=== PATIENT | male | born 1950 | race American Indian/Alaskan Native ===

== ENCOUNTER 2022-02-25 13:57 | Emergency (ER) | payer MEDICARE ==
[2022-02-25] MEDS ORDERED: IPRATROPIUM 0.02% NEBU 2.5 ML IH ONE (15:13)
[2022-02-25] MEDS ORDERED: ALBUTEROL 2.5 MG/3 ML NEBU IH ONE (15:13)
--- NOTE | 2022-02-25 15:58 | XRay Report ---
CHEST 1 VIEW 02/25/2022 3:17 PM INDICATION / CLINICAL INFORMATION: Dyspnea. COMPARISON: None available. FINDINGS: SUPPORT DEVICES: None. HEART / MEDIASTINUM: No significant abnormality. LUNGS / PLEURA: Streaky bibasilar densities which may represent parenchymal scarring. No airspace con solidation. No pneumothorax. ADDITIONAL FINDINGS: Multiple, healed, bilateral rib fractures. IMPRESSION: 1. Streaky bibasilar densities which could represent parenchymal scarring. Signer Name: Diana Jeffries MD Signed: 02/25/2022 3:53 PM Workstation Name: [id number]
[2022-02-25 16:25] LABS: INR 1.18 (0.87-1.13)
[2022-02-25 16:26] LABS: Basophils # (Auto) 0.1 K/mm3 (0.0-0.1); Basophils % (Auto) 0.5 % (0.0-1.8); Eosinophils % (Auto) 0.2 % (0.0-4.3); Hematocrit 31.9 % (35.5-45.6); Hemoglobin 10.4 gm/dl (11.8-15.2); Lymphocytes # (Auto) 1.3 K/mm3 (1.2-5.4); Lymphocytes % (Auto) 11.2 % (13.4-35.0); Mean Corpuscular HGB Conc 33 % (32-34); Mean Corpuscular Volume 81 fl (84-94); Monocytes % (Auto) 9.3 % (0.0-7.3); Platelet Count 343 K/mm3 (140-440); Red Blood Count 3.93 M/mm3 (3.65-5.03); Red Cell Distribution Width 14.7 % (13.2-15.2)
[2022-02-25 16:40] LABS: Creatine Kinase MB 3.4 ng/mL (0.0-4.0)
[2022-02-25 16:41] LABS: Alanine Aminotransferase 24 units/L (7-56); BUN/Creatinine Ratio 20; Blood Urea Nitrogen 20 mg/dL (9-20); Calcium 8.5 mg/dL (8.4-10.2); Hemolysis Index 3
[2022-02-25 17:50] LABS: ABG Base Excess 0.4 mmol/L (-2.0-3.0); ABG HCO3 24.4 mmol/L (20.0-26.0); ABG Methemoglobin 0.5 % (0.0-1.5); ABG Oxygen Saturation 98.5 % (95.0-99.0); ABG PCO2 36.9 mm Hg; ABG PH 7.439 pH Units (7.350-7.450)
--- NOTE | 2022-02-25 18:37 | Cat Scan Report ---
CTA CHEST WITH CONTRAST INDICATION / CLINICAL INFORMATION: SOB. TECHNIQUE: Axial CT images were obtained through the chest after injection of IV contrast. 3 plane NE P and/or 3D reconstructions were produced. All CT scans at this location are performed using CT dose reduction for ALARA by means of automated exposure control. COMPARISON: None available. FINDINGS: Poor contrast bolus timing. The central pulmonary arteries are patent. The more segmental and periphe ral pulmonary arteries are not well seen with several areas of low-attenuation in motion artifact thr oughout. A peripheral or segmental PTE cannot be excluded on this examination. Mildly prominent left axillary nodes are seen. Heart and aorta appear normal. Diffuse emphysematous change within the lungs . There is left upper and left lower lobe infiltrate. Right lower lung infiltrate and atelectasis. Ol d rib fractures are seen bilaterally. Visualized portions of the upper abdomen appear normal. IMPRESSION: 1. Poor contrast bolus timing. The central pulmonary arteries are patent however segmental peripheral pulmonary arteries are not well evaluated. Segmental and peripheral PTE is not excluded. Several are as low-attenuation are seen in several peripheral pulmonary arteries however examination is nondiagno stic in these areas. 2. Lower lobe opacities/infiltrates 3. Emphysematous change Signer Name: Niraj Cheng MD Signed: 02/25/2022 6:32 PM Workstation Name: [id number]
--- NOTE | 2022-02-25 22:39 | Emergency Department Report ---
ED Shortness of Breath HPI - General Chief Complaint: Dyspnea/Respdistress Stated Complaint: MAGGIE Time Seen by Provider: 02/25/22 15:06 Source: patient, family Mode of arrival: Ambulatory Limitations: No Limitations - History of Present Illness Initial Comments: pt was brought in his daughter from rehab place for SOB and MAGGIE , history of blood clots used to be on blood thinners, had remote injury to lungs before per daughter , SOB and MAGGIE for the last few days no history of smoking or CHF MD Complaint: shortness of breath -: Gradual, days(s) Pain Scale: 0 Associated Symptoms: denies other symptoms Treatments Prior to Arrival: none - Related Data Home Oxygen Therapy: No Previous Rx's Medication Instructions Recorded Last Taken Type Albuterol Mdi (or & Nicu Only) 2 puff IH QID PRN #8.5 gram 02/25/22 Unknown Rx [ProAir HFA Inhaler] levoFLOXacin [Levaquin TAB] 500 mg PO QDAY #10 tablet 02/25/22 Unknown Rx Allergies Allergy/AdvReac Type Severity Reaction Status Date / Time No Known Allergies Allergy Verified 02/25/22 14:03 ED Review of Systems ROS: Stated complaint: MAGGIE Other details as noted in HPI Constitutional: denies: chills, fever Eyes: denies: eye pain, eye discharge, vision change ENT: denies: ear pain, throat pain Respiratory: denies: cough, shortness of breath, wheezing Cardiovascular: denies: chest pain, palpitations Endocrine: no symptoms reported Gastrointestinal: denies: abdominal pain, nausea, diarrhea Genitourinary: denies: urgency, dysuria Musculoskeletal: denies: back pain, joint swelling, arthralgia Skin: denies: rash, lesions Neurological: denies: headache, weakness, paresthesias Psychiatric: denies: anxiety, depression Hematological/Lymphatic: denies: easy bleeding, easy bruising ED Past Medical Hx - Past Medical History Hx Hypertension: Yes Hx CVA: No Hx Heart Attack/AMI: No Hx Congestive Heart Failure: No - Medications Home Medications: Home Medications Medication Instructions Recorded Confirmed Last Taken Type Albuterol Mdi (or & Nicu Only) 2 puff IH QID PRN #8.5 gram 02/25/22 Unknown Rx [ProAir HFA Inhaler] levoFLOXacin [Levaquin TAB] 500 mg PO QDAY #10 tablet 02/25/22 Unknown Rx ED Physical Exam - General Limitations: No Limitations General appearance: alert - Head Head exam: Present: atraumatic, normocephalic - Eye Eye exam: Present: normal appearance - ENT ENT exam: Present: mucous membranes moist - Neck Neck exam: Present: normal inspection - Respiratory Respiratory exam: Present: normal lung sounds bilaterally, rales. Absent: respiratory distress - Cardiovascular Cardiovascular Exam: Present: regular rate, normal rhythm. Absent: systolic mu rmur, diastolic murmur, rubs, gallop - GI/Abdominal GI/Abdominal exam: Present: soft, normal bowel sounds - Rectal Rectal exam: Present: deferred - Extremities Exam Extremities exam: Present: normal inspection - Back Exam Back exam: Present: normal inspection - Neurological Exam Neurological exam: Present: alert, oriented X3 - Psychiatric Psychiatric exam: Present: normal affect, normal mood - Skin Skin exam: Present: warm, dry, intact, normal color. Absent: rash ED Course Vital Signs 02/25/22 02/25/22 14:04 22:06 Temperature 99.7 F H 98.2 F Pulse Rate 97 H 88 Respiratory 16 22 Rate Blood Pressure 120/70 113/54 [Left] O2 Sat by Pulse 97 94 Oximetry ED Medical Decision Making - Lab Data Result diagrams: 02/25/22 15:45 02/25/22 15:45 - Radiology Data Radiology results: report reviewed, image reviewed - Medical Decision Making work up showed normal wbc, no increased creatinine , normal o2 sat normal ABGs, x ray shwoed scarring , CTA showd no PE , possible bassal pneumonia, afeb[place] no confusion , abx given will try OP management o pneumonia with anx and inhalers Critical care attestation.: If time is entered above; I have spent that time in minutes in the direct care of this critically ill patient, excluding procedure time. ED Disposition Clinical Impression: SOB (shortness of breath), Pneumonia Disposition: HOME / SELF CARE / HOMELESS Is pt being admited?: No Does the pt Need Aspirin: No Condition: Stable Instructions: Bacterial Pneumonia (ED), Shortness of Breath, Adult, Easy-to-[place]lee d, Community-Acquired Pneumonia, Adult Referrals: LARRY VIGIL MD [Primary Care Provider] - 3-5 Days
[2022-02-26] MEDS ORDERED: ALBUTEROL 2.5 MG/3 ML NEBU IH ONE (04:53)
[2022-02-26] MEDS ORDERED: IPRATROPIUM 0.02% NEBU 2.5 ML IH ONE (04:55)
[2022-02-26 04:57] LABS: Bilirubin,Urine NEG (Negative); Blood,Urine NEG (Negative); Color,Urine Yellow (Yellow); Protein,Urine <15 mg/dL mg/dL (Negative); WBC,Urine < 1.0 /HPF (0.0-6.0)
[2022-02-26 07:39] VITALS: BP 131/84
== END 2022-02-26 07:30 | disposition home or self-care (01) ==
LOC: ED 13:57
DX: J18.9 Pneumonia, unspecified organism (principal); I10 Essential (primary) hypertension; Z79.899 Other long term (current) drug therapy
CPT/HCPCS: 36415; 71045; 71275; 80053; 81001; 82140; 82550; 82553; 82803; 84484; 85025; 85610; 94640; 96365; 99285; J1956; Q9967